=== PATIENT | female | born 1975 | race Hispanic/Latino ===

== ENCOUNTER 2018-06-21 08:55 | Outpatient (CLI) | payer BC ==
[2018-06-21 16:42] LABS: #Lymphocytes 2.3 thou/uL (1.20-3.40); #Monocytes 0.5 thou/uL (0.11-0.59); #Neutrophils 4.3 thou/uL (1.40-6.50); %Basophils 0.6 % (0.0-1.0); %Eosinophils 0.6 % (0.0-10.0); %Lymphocytes 32.2 % (21.0-51.0); %Monocytes 6.9 % (0.0-10.0); %Neutrophils 59.6 % (42.0-75.0); Hemoglobin 13.9 g/dL (12.0-16.0); Mean Corpuscular HGB CONC 32.6 g/dL (32.0-36.0); Mean Corpuscular Hemoglobin 29.2 pg (27.0-31.0); Mean Corpuscular Volume 89.6 fL (78.0-98.0); Mean Platelet Volume 8.4 fL (7.4-10.4); Platelet Count 258 thou/uL (130-400); RBC Distribution Width 11.4 % (11.5-14.5); Red Blood Cell (RBC) Count 4.75 mill/uL (4.20-5.40); White Blood Cell (WBC) Count 7.2 thou/uL (4.8-10.8)
[2018-06-21 16:46] LABS: BHCG - Serum Negative (NEGATIVE); Pregs Control Background? CLEAR/WHITE (CLR/WHITE); Pregs Control Bar Appear? YES (CONTROL BAR)
[2018-06-21 17:08] LABS: Anion Gap 14 mmol/L (10-20); BUN (Urea Nitrogen) 18 mg/dL (7.0-18.7); Calc. Creatinine Clearance 0 mL/min (70-130); Calcium 9.6 mg/dL (7.8-10.44); Carbon Dioxide 22 mmol/L (22-29); Chloride 105 mmol/L (98-107); Estimated GFR-MDRD 86; Glucose 81 mg/dL (70-105); Sodium 137 mmol/L (136-145)
== END 2018-06-21 08:56 | disposition home or self-care (01) ==
LOC: LABBT 08:55
PROVIDERS: ATTEND Orthopaedic Surgery Hand Surgery
DX: Z01.812 Encounter for preprocedural laboratory examination (principal); M19.041 Primary osteoarthritis, right hand
CPT/HCPCS: 80048; 84703; 85025; 85652

== ENCOUNTER 2018-06-22 11:44 | Day surgery (SDC) | payer BC ==
[2018-06-21 15:44] VITALS: BMI 28.5
[2018-06-22] MEDS ORDERED: Midazolam HCl 2 mg/2 ml Vial ONE (12:35)
[2018-06-22] MEDS ORDERED: Fentanyl 100 MCG/2 ML VIAL ONE (12:36)
[2018-06-22] MEDS ORDERED: Bupivacaine PF 0.5% 30 ML VIAL ONE (14:11)
[2018-06-22] MEDS ORDERED: Bacitracin Zinc Ointment 30 gm TUBE ONE (14:11)
[2018-06-22] MEDS ORDERED: Sodium Chloride 0.9% 0 ML ONE (14:11)
[2018-06-22] MEDS ORDERED: Bupivacaine HCl 0.5%/Epinephrine 1:200,000/PF 30 ml Vial ONE (15:48)
[2018-06-22] MEDS ORDERED: Ketorolac Tromethamine 30 MG/ML VIAL ONE ×2 (16:16→17:54)
[2018-06-22] MEDS ORDERED: Ondansetron PF 4 MG/2 ML Vial ONE (16:16)
[2018-06-22] MEDS ORDERED: ePHEDrine 50 MG/ML VIAL ONE (16:16)
[2018-06-22] MEDS ORDERED: Dexamethasone 20 MG/5 ML VIAL ONE (16:16)
[2018-06-22] MEDS ORDERED: PROPOFOL 200 MG/20 ML VIAL ONE (16:16)
--- NOTE | 2018-06-22 16:52 | RAD ---
EXAM: XR Wrist Rt 2 View PROVIDED CLINICAL HISTORY: Right wrist pinning COMPARISON: None available FINDINGS/IMPRESSION: 4 intraoperative fluoroscopic images of the right wrist are submitted for interpretation. Images demo nstrate 2 pins transfixing the proximal aspects of the base of the metacarpal of the thumb and metacarpal of the index finger. Correlation with intraoperative findings is recommended.
--- NOTE | 2018-06-23 12:04 | OP ---
DATE OF PROCEDURE: PREOPERATIVE DIAGNOSES: Right thumb carpometacarpal joint osteoarthritis, severe. FINDINGS: Greater than 70% trapezium surface and 80% thumb metacarpal base surface loss of bone contact on both side. Moderate osteophyte formation. ESTIMATED BLOOD LOSS: 50 mL. TOURNIQUET TIME: 102 minutes. SPECIMEN REMOVED: Trapezium. PROCEDURES PERFORMED: 1. Application of short-arm splint. 2. C-arm supervision. 3. Flexor carpi radialis tendon transfer. 4. Total trapeziectomy, right thumb carpometacarpal joint, ligament replacement with tendon interposition, carpometacarpal joint arthroplasty, right thumb. DESCRIPTION OF PROCEDURE: After successful general LMA technique by [place] anesthesia, the limb was prepped and draped. The patient had preoperative block as well. We then performed a time-out with site, side and procedure all match, consent, and the records. We then took the right upper extremity, exsanguinated the limb, inflated tourniquet to 250 mmHg pressure. We outlined a J-shaped incision, 3 cm long over the base of the thumb carpometacarpal joint and the CMC joint. We outlined a flexor carpi radialis, including two more proximal on the forearm harvest sites. We carried the incision through skin, and subcutaneous tissue, protecting the nerves in the nerves plane between the median and radial nerve distribution. We then retracted the abductor pollicis longus and brevis, entered the fascia and tagged the fascia with a #2 Vicryl using a simple stitch. We then slowly removed the capsule from both sides of the trapezium and the trapezoid until the material we had seen both. At this point we localized the trapezium with a K-wire inside and used the C-arm to confirm it was the trapezium and not in the trapezoid, both confirmed and continued with the process. We immediately identified on the ulnar aspect of the trapezium, the flexor carpi radialis, which could be used for transfer later, so we finally released the sheath, from the bone and then released the capsule of the trapezium that was lateral to the trapezium. Once we and opened the sheath containing flexor radialis all the way to its insertion, retracted it, released the reminder of the capsule between the scaphotrapezium and the CMC joint until we elevated the CMC joint, protecting the tendon. Tendon was completely without damage as we lifted out the trapezium and noticed the 80% trapezium and 75% base of the thumb chondral loss with inebriated bone contact. At this point, the trapezium was removed, we placed a heavy 3-0 Prolene in the medial capsule just dorsal/posterior to the [place] insertion and prepared for next phase. After we had identified the thumb, we removed all osteophytes, placed two Hohmann on the surface of the patient. I then had a drill hole made at a 30-degree angle, beginning 12 mm distal and on the lateral wall to the thumb base and drilled this into the junction of the metaphyseal chondral bone surface with excellent frontal sagittal plane, so we then obtained the patient's medial wall, penetrated the base of the thumb without violating the flexor carpi radialis, protecting it with ulnar side opening and then we took the harvested musculotendinous unit and visualized it against the . We then passed the graft without complication from the index finger base where it insert with the origin where it inserts to the point where we can now secure it. We then passed the graft through the tunnels underneath the abductor, reduced it nearly anatomic in relation to the second metacarpal to reduce the line congruency without malrotation and then placed enough confidence in the construct to hold them into the second metacarpal and this was confirmed on C-arm, tension in the graft which has solid root. The patient then had the final two sutures of the flexor carpi radialis into itself deep in the base of the wound and then we performed the weave traditionally of the remaining portion of the flexor radialis in a (anchovy) type configuration. We tied this deep against the posterior ulnar capsule, and then we closed the capsule with the same 2-0 Vicryl we tagged initially. The patient had the tourniquet deflated. We obtained hemostasis, we then secured the anchovy, and then once we had hemostasis, closed the donor sites as well as the skin over the primary surgical site with a running 4-0 Monocryl undyed. We also had closed the fascia of the thenar muscle back to its old rim using a 2-0 Vicryl. At the end of this closure, bulky dressing was applied and Steri-Strips to the epidermis along with a thumb spica splint which is well fitting. Job ID: [id number]
== END 2018-06-22 19:00 | disposition home or self-care (01) ==
LOC: SDC 11:44
PROVIDERS: ATTEND Orthopaedic Surgery Hand Surgery
PROC: 0PBM0ZZ Excision of Right Carpal, Open Approach (ICD-10-PCS; principal; 2018-06-22)
PROC: 0LX70ZZ Transfer Right Hand Tendon, Open Approach (ICD-10-PCS; principal; 2018-06-22)
DX: M18.11 Unilateral primary osteoarthritis of first carpometacarpal joint, right hand (principal); M25.731 Osteophyte, right wrist; Z79.3 Long term (current) use of hormonal contraceptives
CPT/HCPCS: 76000; J0670; J0690; J1100; J1885; J2250; J2405; J2704; J3010; J3490; S0020

== ENCOUNTER 2019-02-14 14:28 | Outpatient (CLI) | payer BC ==
--- NOTE | 2019-02-14 15:56 | MRI ---
MRI RIGHT THUMB WITHOUT IV CONTRAST: INDICATIONS: History of right thumb and hand pain when gripping and pinching. History of thumb surgery in June 25 for removal of bone and to repair a tendon. COMPARISON: Right wrist intraoperative C-arm radiographs from 06/22/2018 from [facility]. FINDINGS: As seen on the comparison radiographs, there is post surgical change of a trapeziectomy and tendon in terposition. There is susceptibility artifact near the operative site, likely related to metallic par ticles from surgical burring. There is also a suture anchor present within the dorsal and radial aspe ct of the thumb metacarpal base. There is abnormal edema with a linear subchondral defect involving t he dorsal aspect of the thumb metacarpal head, suspicious for a small nondisplaced fracture. This can be seen on image 5 of series 3 and on image 6 of series 9. There is mild joint effusion involving th e thumb metacarpophalangeal joint. The ulnar and radial collateral ligaments are intact. The collater al ligaments of the thumb IP joint are intact. The flexor pollicis longus appears intact. The extenso r pollicis longus tendon appears intact. There is mild edema distending the first, second and third e xtensor compartments, consistent with mild tenosynovitis. There is some mild marrow edema involving t he trapezoid which may be post procedural in nature. IMPRESSION: 1. Post procedural changes, consistent with a trapeziectomy with tendon interposition. 2. Nondisplaced fracture involving the dorsal radial aspect of the thumb metacarpal head. 3. Mild suspected tenosynovitis involving the first, second and third dorsal compartments of the left wrist. 4. Nonspecific edema involving the trapezoid may be post procedural in nature. 5. Correlation with postoperative right hand and wrist radiographs is recommended. POS: [facility]
== END 2019-02-14 14:29 | disposition home or self-care (01) ==
LOC: BICMRI 14:28
PROVIDERS: ATTEND Orthopaedic Surgery Hand Surgery
DX: M79.644 Pain in right finger(s) (principal); S62.514A Nondisplaced fracture of proximal phalanx of right thumb, initial encounter for closed fracture; R60.0 Localized edema; Z98.890 Other specified postprocedural states

== ENCOUNTER 2019-02-27 07:43 | Outpatient (CLI) | payer BC ==
--- NOTE | 2019-02-27 09:33 | BD ---
BONE DENSITOMETRY: Date: 02/27/19 INDICATION: Postmenopausal osteoporosis screening. FINDINGS: Lumbar Spine: BMD (g/cm2) L1 0.863 T-Score: -1.2 L2 0.922 T-Score: -1.0 L3 0.919 T-Score: -1.5 L4 0.845 T-Score: -2.0 Total 0.885 T-Score: -1.5 Left Femoral Neck: 0.816 T-Score: -0.3 Total Femur: 0.958 T-Score: 0.1 IMPRESSION: 1. Bone mineral density of the lumbar spine indicates osteopenia. 2. Bone mineral density of the femoral neck within normal range. 10 YEAR FRACTURE RISK: Major osteoporotic fracture: 3.9% Hip fracture: 0.1% POS: [facility]
== END 2019-02-27 07:44 | disposition home or self-care (01) ==
LOC: BICMAMMO 07:43
PROVIDERS: ATTEND Orthopaedic Surgery Hand Surgery
DX: S62.29 Other fracture of first metacarpal bone (principal); M85.88 Other specified disorders of bone density and structure, other site
CPT/HCPCS: 77080

== ENCOUNTER 2019-12-28 07:49 | Outpatient (CLI) | payer BC ==
--- NOTE | 2019-12-28 09:37 | MRI ---
EXAM: MRI right thumb with and without IV contrast PROVIDED CLINICAL HISTORY: Pain COMPARISON: 02/14/2019 FINDINGS: Postoperative changes of thumb suspension plasty are redemonstrated. There is signal alteration comprised of marrow edema like signal and subcortical cystlike change invo lving the thumb metacarpal base and trapezoid. Less conspicuous similar change involves the distal pole of the scaphoid. Regional marrow signal appears otherwise unremarkable. There is no evidence for a focal fluid collect ion. Alignment appears anatomic. Joint spaces appear otherwise maintained. The thumb flexor, extensor, abductor and adductor tendons appear intact. While this protocol was not optimized for asse ssment of the thumb MCP joint, the collateral ligaments appear intact. The courses of the regional major neurovascular structures appear unremarkable. IMPRESSION: Postoperative changes of thumb suspension plasty are redemonstrated, with signal alteration about the carpal-metacarpal articulation as above presumably stress-related.
== END 2019-12-28 07:50 | disposition home or self-care (01) ==
LOC: SCSMRI 07:49
PROVIDERS: ATTEND Orthopaedic Surgery Hand Surgery
DX: M94.8X9 Other specified disorders of cartilage, unspecified sites (principal); R93.7 Abnormal findings on diagnostic imaging of other parts of musculoskeletal system; Z98.890 Other specified postprocedural states